=== PATIENT | male | born 1980 | race Caucasian/White ===

== ENCOUNTER 2019-06-10 01:15 | Day surgery (SDC) | payer SELFPAY ==
[~2019-06-10] VITALS: Ht 180.3 cm; Wt 107.0 kg
[~2019-06-10 01:15] MED LIST: AMOX-559 PO; CEP500 PO; HYDR-385 PO; LOR5/325 PO; NO ROUTINE MEDS
[2019-06-10 08:40] VITALS: BP 138/97
[2019-06-10] MEDS ORDERED: ROPIVACAINE 0.2% 400 MG/200ML 250 ML CONINFUS ONE (09:25)
[2019-06-10] MEDS ORDERED: LIDOCAINE/SOD BICARB 8.4% SYR ID ONE (09:25)
[2019-06-10] MEDS ORDERED: ceFAZolin(*) 2GM/D5W 50ML 50 ML IVPB ONE (09:25)
[2019-06-10] MEDS ORDERED: NORMOSOL R SOLN(*) 1000 ML BAG 1,000 ML IV PRN (09:25)
[2019-06-10] MEDS ORDERED: MIDAZOLAM 2 MG/2 ML VIAL IVP PRN ×2 (09:25)
[2019-06-10] MEDS ORDERED: FAMOTIDINE 20 MG TAB PO ONE (09:25)
[2019-06-10] MEDS ORDERED: ROPIVACAINE 0.2% 20 ML VIAL ONE ×2 (10:10→12:06)
[2019-06-10] MEDS ORDERED: BACITRACIN OINT 15 GM TUBE TP ONE (10:10)
[2019-06-10] MEDS ORDERED: MIDAZOLAM 2 MG/2 ML VIAL ONE (10:48)
[2019-06-10] MEDS ORDERED: fentaNYL CITR 100 MCG/2 ML AMP ONE ×2 (11:03→13:21)
[2019-06-10] MEDS ORDERED: PROPOFOL EMUL(*) 10MG/ML 20 ML 20 ML ONE (12:05)
[2019-06-10] MEDS ORDERED: ONDANSETRON 4 MG/2 ML VIAL ONE (12:05)
[2019-06-10] MEDS ORDERED: ROPIVACAINE 0.5% 20 ML VIAL ONE (12:06)
[2019-06-10] MEDS ORDERED: MEPERIDINE HCL 50 MG/ML SDV 50 MG/ML VIAL ONE (12:41)
--- NOTE | 2019-06-10 12:46 | OPERATIVE REPORT 1 ---
EVENT DATE: June 10, 2019 SURGEON: Geovanni Todd MD ASSISTANT NEWS DIRECTOR: Viraj Barnes PA-C ANESTHESIOLOGIST: Casey Lynn MD ANESTHESIA: General. PREOPERATIVE DIAGNOSIS Left intra-articular calcaneus fracture. POSTOPERATIVE DIAGNOSIS Left intra-articular calcaneus fracture. PROCEDURE PERFORMED Open reduction internal fixation of intra-articular displaced calcaneus fracture. ESTIMATED BLOOD LOSS Minimal. FLUID Minimal. DESCRIPTION OF PROCEDURE Patient was brought to the operating room and placed in the lateral position. He was prepped and draped in the usual sterile fashion using Prevail. Sterile stockinettes and U-drape were placed on the lower extremity. Stockinette was incised from above knee and held with Coban. Esmarch was then used to exsanguinate the lower extremity and tourniquet turned up to 300 mmHg. A hockey- stick incision was made directly on the lateral aspect of the calcaneus. Skin incised with 15 blade down to the subcutaneous tissue and sharp dissection was taken all the way down to the bone and around the posterior tuberosity of the calcaneus to create a full-thickness flap. Sharp dissection was then taken to do periosteal elevation off the bone and we were able to take this all the way up to the subtalar joint. I was able to move the peroneal tendons out of the way and release them from their canal and get up into the subtalar joint. I then placed three K-wires into the talus and bent them to hold retraction of the large flap that was present without any pressure on the flap. Once that was done, I was able to elevate the lateral wall. I was able to get down into the fracture sites. I found that there was one very large posterior facet fragment, which I was able to easily open up and debride. I was able to see the posterior facet nicely, debride that and used irrigation, rongeur and curette actually to remove any of the fragments that were still there. I then found the tuberosity fracture going back into the medial side of the ankle, freed that up, placed a lamina road freight brake coupler in between the two so I actually could take the tuberosity and lengthen it out to the right position. Once that was held out in the right position, I was able to bring back the posterior facet piece and under direct visualization reduce the posterior facet as best as I could visualize. I put a K-wire across it to hold it. I then brought fluoroscopy in and I checked AP, oblique, lateral and axillary and found that I had a pretty good reduction of the posterior facet. I then placed two screws across in a lag manner, squeezing the two pieces together to hold them in their right position. Once that was done, I removed the K-wire that was holding it. I then again lengthened the tuberosity but then I put a large Schanz pin into the tuberosity and pulled it from varus into valgus and pieced a large K-wire from the tuberosity into the forefoot. I brought fluoroscopy in and on an axial view I was able to see that I had corrected the hindfoot varus and actually corrected the length as well, which I could tell on the medial side of the calcaneus. Once that was held in the right position, I then brought bone grafting, which was in the form of calcaneus croutons, which I placed in the central vacuole place. I then reduced the anterior process piece down over the top of it, was able to put a Synthes locking plate on top of it. I checked on fluoroscopy and made sure the plate was in good position. I then used a non-locking screw to bring the plate down over the top of this. I placed one proximal and one distal. Once I had those in position, I then started locking screws. I locked multiple screws posterior, superior, inferior and distal, holding this out to length in all three axis. Once I had this locked and I felt appropriately fixed, I checked on fluoroscopy AP, lateral, oblique and axial, all to find all the screws were in good alignment and good position. We then closed the corner of the flap just using a 3-0 Nylon in an Allgower-Donati stitch. I used three of those stitches around the corner. We then used a 3-0 Monocryl and nick on the rest of the incision, adaptic 4x4s, big bulky Carpenter dressing. Patient went to recovery with no complications. MICHELLE
[2019-06-10] MEDS ORDERED: KETOROLAC 30 MG/ML VIAL ONE (12:53)
[2019-06-10] MEDS ORDERED: ASPI-1471 PO (13:01)
[2019-06-10 13:25] VITALS: BP 128/83
[2019-06-10] MEDS ORDERED: APAP/HYDROCODONE 325/5 TAB ONE (13:31)
--- NOTE | 2019-06-10 13:33 | NUR ---
MEDICATED FOR HEEL PAIN 2-3. DULL ACHE. DRESSING TO LEFT LEG IS DRY.
[2019-06-10 13:45] VITALS: BP 135/81
[2019-06-10 14:00] VITALS: BP 145/93
[2019-06-10 14:39] VITALS: BP 132/86
== END 2019-06-10 13:25 | disposition home or self-care (01) ==
LOC: OR 01:15
PROVIDERS: ATTEND Orthopaedic Surgery
DX: S92.062A Displaced intraarticular fracture of left calcaneus, initial encounter for closed fracture (principal)
CPT/HCPCS: 28415; C1713; J1885; J2175; J2250; J2405; J2704; J2795; J3010; J0690